=== PATIENT | female | born 1975 | race Two or more races ===

== ENCOUNTER 2021-07-20 14:11 | Emergency (ER) | payer OTHER ==
[~2021-07-20] VITALS: Ht 149.9 cm; Wt 68.9 kg
== END 2021-07-20 21:44 | disposition home or self-care (01) ==
LOC: ER 14:11
DX: S62.308A Unspecified fracture of other metacarpal bone, initial encounter for closed fracture (principal); I10 Essential (primary) hypertension; E08.9 Diabetes mellitus due to underlying condition without complications